=== PATIENT | female | born 1985 | race Two or more races ===

== ENCOUNTER 2023-01-02 11:08 | Emergency (ER) | payer OTHER ==
[~2023-01-02] VITALS: Ht 147.3 cm; Wt 60.8 kg
== END 2023-01-02 18:39 | disposition home or self-care (01) ==
LOC: ER 11:08
DX: O20.9 Hemorrhage in early pregnancy, unspecified (principal); Z3A.14 14 weeks gestation of pregnancy

== ENCOUNTER 2023-01-21 09:23 | Outpatient (CLI) | payer OTHER | END 2023-01-21 10:35 | disposition home or self-care (01) | LOC: PRENATAL 09:23 | PROVIDERS: ATTEND Obstetrics & Gynecology Maternal & Fetal Medicine | DX: O26.849 Uterine size-date discrepancy, unspecified trimester (principal); O09.529 Supervision of elderly multigravida, unspecified trimester; Z3A.16 16 weeks gestation of pregnancy ==

== ENCOUNTER 2023-02-22 12:31 | Outpatient (CLI) | payer OTHER | END 2023-02-22 14:45 | disposition home or self-care (01) | LOC: PRENATAL 12:31 | PROVIDERS: ATTEND Obstetrics & Gynecology Maternal & Fetal Medicine | DX: O35.9XX0 Maternal care for (suspected) fetal abnormality and damage, unspecified, not applicable or unspecified (principal); O35.3XX0 Maternal care for (suspected) damage to fetus from viral disease in mother, not applicable or unspecified; O09.529 Supervision of elderly multigravida, unspecified trimester; Z3A.20 20 weeks gestation of pregnancy ==

== ENCOUNTER 2023-04-30 14:17 | Emergency (ER) | payer OTHER ==
[~2023-04-30] VITALS: Ht 144.8 cm; Wt 64.9 kg
[2023-04-30] MEDS ORDERED: PRENATAL + DHA1 EAC1 PO (14:30)
[2023-04-30] MEDS ORDERED: ONDANSETRON ODT8 MG PO (20:52)
[2023-04-30] MEDS ORDERED: PEPCID AC20 MG PO (20:52)
== END 2023-04-30 21:02 | disposition home or self-care (01) ==
LOC: ER 14:17
DX: O99.613 Diseases of the digestive system complicating pregnancy, third trimester (principal); K92.89 Other specified diseases of the digestive system; Z3A.30 30 weeks gestation of pregnancy; K52.9 Noninfective gastroenteritis and colitis, unspecified; Z20.822 Contact with and (suspected) exposure to COVID-19; O24.419 Gestational diabetes mellitus in pregnancy, unspecified control

== ENCOUNTER 2023-05-11 11:04 | Outpatient (CLI) | payer OTHER ==
[~2023-05-11 11:04] MED LIST: ONDANSETRON ODT8 MG PO; PEPCID AC20 MG PO; PRENATAL + DHA1 EAC1 PO
== END 2023-05-11 12:41 | disposition home or self-care (01) ==
LOC: PRENATAL 11:04
PROVIDERS: ATTEND Obstetrics & Gynecology Maternal & Fetal Medicine
DX: O26.849 Uterine size-date discrepancy, unspecified trimester (principal); O36.8199 Decreased fetal movements, unspecified trimester, other fetus; O09.529 Supervision of elderly multigravida, unspecified trimester; O24.419 Gestational diabetes mellitus in pregnancy, unspecified control; Z3A.32 32 weeks gestation of pregnancy

== ENCOUNTER 2023-06-08 13:55 | Outpatient (CLI) | payer OTHER | END 2023-06-08 15:07 | disposition home or self-care (01) | LOC: PRENATAL 13:55 | PROVIDERS: ATTEND Obstetrics & Gynecology Maternal & Fetal Medicine | DX: O26.849 Uterine size-date discrepancy, unspecified trimester (principal); O36.8199 Decreased fetal movements, unspecified trimester, other fetus; O09.529 Supervision of elderly multigravida, unspecified trimester; O24.419 Gestational diabetes mellitus in pregnancy, unspecified control; Z3A.36 36 weeks gestation of pregnancy ==